=== PATIENT | male | born 1975 ===

== ENCOUNTER 2024-06-10 08:30 | Outpatient (RCR) | payer OTHER, SELFPAY ==
[2024-06-10 08:30] VITALS: BP 126/66
[2024-06-10] MEDS: CORTROSYN 1 MG IV (09:29)
[2024-06-10 10:40] VITALS: BP 127/78
[2024-06-10 12:59] LABS: ACTH Stim Cortisol 60 Min 20.8 ug/dl
[2024-06-10 13:00] LABS: ACTH Stim Cortisol 30 Min 17.8 ug/dl
[2024-06-10 13:01] LABS: ACTH Stim Cortisol 0 Min 6.4 ug/dl
== END 2024-07-06 23:59 | disposition home or self-care (01) ==
LOC: OID 08:30
PROVIDERS: ATTENDING PHYSICIAN Internal Medicine Endocrinology, Diabetes & Metabolism; FAMILY PHYSICIAN Family Medicine
DX: E27.40 Unspecified adrenocortical insufficiency (principal)
CPT/HCPCS: 36415; 82533; 96374

== ENCOUNTER 2024-09-17 08:30 | Outpatient (RCR) | payer OTHER, SELFPAY ==
[2024-09-17 08:43] VITALS: BP 132/84
[2024-09-17] MEDS: CORTROSYN 1 MG IV (09:37)
[2024-09-17 11:48] LABS: ACTH Stim Cortisol 30 Min 19.1 ug/dl
[2024-09-17 12:54] LABS: ACTH Stim Cortisol 60 Min 22.3 ug/dl
== END 2024-10-04 23:59 | disposition home or self-care (01) ==
LOC: OID 08:30
PROVIDERS: ATTENDING PHYSICIAN Internal Medicine Endocrinology, Diabetes & Metabolism; FAMILY PHYSICIAN Family Medicine
DX: E27.40 Unspecified adrenocortical insufficiency (principal)
CPT/HCPCS: 82533; 96374